=== PATIENT | female | born 1985 | race Caucasian/White ===

== ENCOUNTER 2020-09-11 20:55 | Inpatient (IN) | payer BC, SELFPAY ==
--- NOTE | 2020-09-11 21:29 | MHC.CARE ---
CARE team met with this patient at ED registration to facilitate transfer/admission to . Patient was presented with CV and is (politely) refusing. Is agreeable to admission but states she will not be able to stay for three days and only wants to get some rest and see a psychiatrist. Reports she successfully detoxed herself off of her meds using THC. Reports she has a plan and that this admission is part of it. Pleasant and cooperative. 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 CARE team facilitated section 12 for admission. Patient was brought to by EMS with CARE team. CARE team updated staff on patient's admission status.
[2020-09-11 22:28] VITALS: BMI 31.8
--- NOTE | 2020-09-11 22:49 | PC.NURSE ---
PT IS A 35 YEAR OLD FEMALE OF [place], 15 MINUTE SAFETY CHECKS, PSYCH GROUPS. PT WAS BROUGHT TO [facility] BY AMBULANCE AND TRANSFERED TO [facility] M5 UNIT FOR DEPRESSION. PT DETOXED HERSELF OFF HER MEDS USING THC GUMMIES BECAUSE SHE DOES NOT LIKE THE SIDE EFFECTS OF HER MEDICATIONS. PT DOES NOT HAVE A CURRENT THERAPIST AND WOULD LIKE A PSYCHIATRIST. PT REPORTS NO SI/HI. NO HALLUCINATIONS. SHE SAID SHE NEEDS TO RELAX, GET HER MEDS CORRECT, AND LEAVE SOON POSSIBLE. PT LIVES WITH HER SIGNIFICANT OTHER AND HIS 2 KIDS FOR THE PAST YEAR WHICH HAS BEEN A BIG CHANGE FOR HER. PT IS STRESSED BECAUSE SHE WANTS A BABY AND FEELS LIKE SHE IS RUNNING OUT OF TIME TO GET HER LIFE TOGETHER. PT WANTS A THC MEDICAL CARD DUE TO WORRY THAT SHE WILL LOSE HER EMPLOYMENT IF THEY RANDOMLY DRUG TEST HER. PT APPEARS DEPRESSED, CRYING WHILE TALKING ABOUT HER SITUATION. SHE IS COOPERATIVE AND APPROPRIATE. PT SAID SHE HAD A SPIRITUAL AWAKENING THAT HAS NEVER HAPPENED ON HER WAY FROM [facility] TO [facility] WITH THE EMT BECAUSE HER NAME WAS THE SAME HER BEST FRIENDS. PT FEELS IT IS HARD TO TALK TO ANYONE IN HER LIFE AND ONLY WANTS TO TALK TO INSULATION NOZZLEMAN BUT NEEDS TO BE SET UP WITH THE RESOURCES FOR WHEN SHE GETS OUT OF HERE.
[2020-09-12] MEDS: OLANZapine 5 MG TABLET PO ×2 (00:05→21:14)
[2020-09-12] MEDS: Acetaminophen 325 MG TABLET 650 MG PO ×2 (01:15→18:18)
[2020-09-12] MEDS: Omeprazole 20 MG CAPSULE.DR PO ×2 (05:36→16:57)
[2020-09-12 06:15] VITALS: BP 141/84; PULSE 87; RESP 18; TEMP 37; O2SAT 99
[2020-09-12 08:14] LABS: MANUAL DIFF FLAG NO
[2020-09-12 08:21] LABS: Basophils Percent Auto 0.3 % (0-2); Eosinophils Absolute Auto 0.2 X10*3/uL (0.0-0.4); Eosinophils Percent Auto 1.2 % (0-4); Hemoglobin 12.1 g/dl (12.0-16.0); Imm Gran Abs Auto 0.04 X10*3/uL (0.00-0.03); Imm Gran Pct Auto 0.3 % (0.0-0.4); Lymphocytes Absolute Auto 2.4 X10*3/uL (1.2-4.9); Lymphocytes Percent Auto 16.9 % (20-40); Mean Corpuscular HGB Conc 31.8 g/dl (31.0-35.0); Mean Corpuscular Hemoglobin 25.4 pg (27.0-33.0); Mean Corpuscular Volume 79.7 fL (80-98); Mean Platelet Volume 10.1 fL (9.4-12.3); Monocytes Absolute Auto 0.8 X10*3/uL (0.1-1.2); Monocytes Percent Auto 5.2 % (2-11); Neutrophils Percent Auto 76.1 % (45-73); Platelet Count 386 X10*3/uL (160-400); Red Blood Count 4.77 X10*6/uL (4.20-5.50); Red Cell Distribution Width 14.7 % (11.0-16.0); White Blood Count 14.4 X10*3/uL (4.8-10.8)
[2020-09-12 08:52] LABS: Glucose Fasting 106 mg/dL (60-99)
[2020-09-12 08:54] LABS: Cholesterol 177 mg/dL; HDL Cholesterol 57 mg/dL; LDL Cholesterol Calculated 99 mg/dl; Triglycerides 106 mg/dL
[2020-09-12 09:12] LABS: Thyroid Stimulating Hormone 1.76 uIU/mL (0.32-4.0)
--- NOTE | 2020-09-12 10:56 | HO.PSYADMNOT ---
HPI Chief Complaint: depression Sources of Information: patient interviewed, chart reviewed and crisis/core team assessment reviewed Additional Sources of Information: SUGAR REFINERY SUPERVISOR crises evaluation HPI Narrative: 35 SWF presents with paige. Was seen by SUGAR REFINERY SUPERVISOR at [facility] after her S.O became concerned re increasingly intrusive behaviors, disrupting daughters online class, sending odd communications to people at work prompting calls to her SO Kostas. Also noted poor sleep, rapid tangential speech. Very worried about pandemic affecting her family. Responding to IS when observed. Made suicidal statements (unspecified in report). Stressors: Covid/recent promotion at work to join [employer] at [employer]./stopped all meds bc wants to explore THC. Denies Hx of paige. On interview labile, spontaneously crying, rapid speech. Rambling about sharing garden seeds with another manic pt, talked about her passion in helping Vets Its my [employer] work . Mentioned X names from work as if TW would know the names (overfamiliar). Stated she has figured out her life in the past few days by reading the Bible ( never read before ). Is aware I might be bipolar . Racing thoughts experienced. Denies PI. Past Psychiatric History: No psych MD. Was on Zoloft/Wellbutrin. Stopped around . No past Hx of Mood stabilizers/FGAs/SGAs Medical Evaluation Reviewed: Hospitalist Teresaal Pending [facility], [facility]–1983 Narrative: Hx Lap Band Narrative: Hx lap band Family History: M: drug addiction, F : of ETOH. 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 Marriage deferred bc of COVID Substance History: THC+. I grow it its legal now Trauma History: Denies Diagnostics Vital Signs (24Hr): Vital Signs - 24 hr 09/12/20 06:15 Temperature 98.6 F Pulse Rate 87 Respiratory Rate 18 Blood Pressure 141/84 H Pulse Oximetry 99 Body Mass Index 31.8 Labs Results: 09/12/20 07:54 Labs: Laboratory Results - last 48 hr 09/12/20 09/12/20 09/12/20 07:54 07:54 07:55 WBC 14.4 H RBC 4.77 Hgb 12.1 Hct 38.0 MCV 79.7 L MCH 25.4 L MCHC 31.8 RDW 14.7 Plt Count 386 MPV 10.1 Immature Gran % (Auto) 0.3 Neut % (Auto) 76.1 H Lymph % (Auto) 16.9 L [place] % (Auto) 5.2 Eos % (Auto) 1.2 Baso % (Auto) 0.3 Lymph # (Auto) 2.4 [place] # (Auto) 0.8 Eos # (Auto) 0.2 Baso # (Auto) 0.0 Abs Immat Gran (auto) 0.04 H Absolute Neuts (auto) 11.0 H Absolute Nucleated RBC 0.000 Nucleated RBC % (auto) 0.0 Fasting Glucose 106 H Triglycerides Cholesterol LDL Cholesterol, Calc HDL Cholesterol TSH 1.76 09/12/20 07:55 WBC RBC Hgb Hct MCV MCH MCHC RDW Plt Count MPV Immature Gran % (Auto) Neut % (Auto) Lymph % (Auto) [place] % (Auto) Eos % (Auto) Baso % (Auto) Lymph # (Auto) [place] # (Auto) Eos # (Auto) Baso # (Auto) Abs Immat Gran (auto) Absolute Neuts (auto) Absolute Nucleated RBC Nucleated RBC % (auto) Fasting Glucose Triglycerides 106 Cholesterol 177 LDL Cholesterol, Calc 99 HDL Cholesterol 57 TSH Meds/Allergies Meds Home Medications Acetaminophen (Acetaminophen 325 Mg Tablet) 650 mg PO Q6H PRN PRN Reason: Headache Last Admin: 09/12/20 18:18 Dose: 650 mg Documented by: Al Hydroxide/Mg Hydroxide (Magnesium Hydrox/Alum Hydrox 30 Ml Oral.Susp) 30 ml PO Q6H PRN PRN Reason: Nausea Lorazepam (Lorazepam 1 Mg Tablet) 1 mg PO Q4H PRN PRN Reason: anxiety/restlessness Magnesium Hydroxide (Milk Of Magnesia 30 Ml Oral.Susp) 30 ml PO DAILY PRN PRN Reason: Constipation Olanzapine (Olanzapine 5 Mg Tablet) 5 mg PO Q4H PRN PRN Reason: Anxiety Last Admin: 09/12/20 00:05 Dose: 5 mg Documented by: Olanzapine (Olanzapine 5 Mg Tablet) 5 mg PO BID [facility] Omeprazole (Omeprazole 20 Mg Capsule.) 20 mg PO BID@0630,1630 [facility] Last Admin: 09/12/20 16:57 Dose: 20 mg Documented by: Valacyclovir HCl (Valacycyclovir Hcl 500 Mg Tablet) 500 mg PO DAILY [facility] Last Admin: 09/12/20 09:34 Dose: Not Given Documented by: Allergies Allergies Allergy/AdvReac Type Severity Reaction Status Date / Time No Known Allergies Allergy Verified 09/11/20 23:12 Mental Status Exam Mental Status Exam Patient Appearance: Disheveled Patient Orientation: Person, Place, Time and Situation Level of Consciousness: Awake Patient Behavior: Hyperactive and Restless Mood Description: Labile, Elated, Nervous and Expansive Affect Description: Labile, Sad and Nervous Ability to Follow Directions: Good Speech Pattern: Perseverating and Pressured Memory Description: Intact Hallucinations: None Delusions: Not Present Thought Content: positive for Loose Associations and positive for Suicidal Ideation (denies) Depressive Symptoms: Insomnia Abnormal Motor Activity Signs and Symptoms: Agitation and Hyperactivity Assessment & Plan Assessment & Plan (1) Bipolar I disorder with paige: Status: Acute Code(s): F31.10 - Bipolar disorder, current episode manic without psychotic features, unspecified (2) Cannabis abuse: Status: Acute Code(s): F12.10 - Cannabis abuse, uncomplicated Assessment and Plan: q15 checks cv OLZ 5 mg BID and Loraz PRN Collateral from [facility] Rx as appropriate Patient educated on: diagnosis Informed Consent: understands Reason for continued inpatient stay Substantial Risk for: harm to self, inability to function and rapid decompensation
[2020-09-12 17:02] VITALS: BP 134/76; PULSE 78; TEMP 36.3
[2020-09-13] MEDS: Acetaminophen 325 MG TABLET 650 MG PO ×2 (00:24→20:03)
[2020-09-13 07:00] VITALS: BMI 31.6
--- NOTE | 2020-09-13 07:41 | HO.PSYCHPN ---
Subjective Subjective Date of Service: 09/13/20 Reason For Visit: depression Subjective Notes: Conditional Voluntary Interim History: Remains hypiomanic. Some rambling. Arranging rearranging things. Shows self in good light. Negotiated to 7.5 mg OLZ. Does not want Kostas as next of kin contact but her M. 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 Compliance: Yes Side effects from medications: No Attending Groups: Yes Review of Systems Review of Systems Yes all other systems are reviewed and are negative Mental Status Exam Mental Status Exam Patient Appearance: Disheveled Patient Orientation: Person, Place, Time and Situation Level of Consciousness: Awake Patient Behavior: Hyperactive and Restless Mood Description: Elated, Nervous and Expansive Affect Description: Labile, Sad and Nervous Ability to Follow Directions: Good Speech Pattern: Perseverating and Pressured Memory Description: Intact Diagnostics Vital Signs (24Hr): Vital Signs - 24 hr 09/12/20 17:02 Temperature 97.3 F Pulse Rate 78 Blood Pressure 134/76 Body Mass Index 31.8 Labs Results: 09/12/20 07:54 Labs: Laboratory Results - last 48 hr 09/12/20 09/12/20 09/12/20 07:54 07:54 07:55 WBC 14.4 H RBC 4.77 Hgb 12.1 Hct 38.0 MCV 79.7 L MCH 25.4 L MCHC 31.8 RDW 14.7 Plt Count 386 MPV 10.1 Immature Gran % (Auto) 0.3 Neut % (Auto) 76.1 H Lymph % (Auto) 16.9 L [place] % (Auto) 5.2 Eos % (Auto) 1.2 Baso % (Auto) 0.3 Lymph # (Auto) 2.4 [place] # (Auto) 0.8 Eos # (Auto) 0.2 Baso # (Auto) 0.0 Abs Immat Gran (auto) 0.04 H Absolute Neuts (auto) 11.0 H Absolute Nucleated RBC 0.000 Nucleated RBC % (auto) 0.0 Fasting Glucose 106 H Triglycerides Cholesterol LDL Cholesterol, Calc HDL Cholesterol TSH 1.76 09/12/20 07:55 WBC RBC Hgb Hct MCV MCH MCHC RDW Plt Count MPV Immature Gran % (Auto) Neut % (Auto) Lymph % (Auto) [place] % (Auto) Eos % (Auto) Baso % (Auto) Lymph # (Auto) [place] # (Auto) Eos # (Auto) Baso # (Auto) Abs Immat Gran (auto) Absolute Neuts (auto) Absolute Nucleated RBC Nucleated RBC % (auto) Fasting Glucose Triglycerides 106 Cholesterol 177 LDL Cholesterol, Calc 99 HDL Cholesterol 57 TSH Medications Medications Current Medications Generic Name Dose Route Start Last Admin Trade Name Freq PRN Reason Stop Dose Admin Acetaminophen 650 mg 09/11/20 23:25 09/13/20 00:24 Acetaminophen 325 Mg Tablet PO 650 mg Q6H PRN Administration Headache Al Hydroxide/Mg Hydroxide 30 ml 09/11/20 23:27 Magnesium Hydrox/Alum Hydrox 30 Ml Oral.Susp PO Q6H PRN Nausea Lorazepam 1 mg 09/12/20 19:33 Lorazepam 1 Mg Tablet PO Q4H PRN anxiety/restlessness Magnesium Hydroxide 30 ml 09/11/20 23:29 Milk Of Magnesia 30 Ml Oral.Susp PO DAILY PRN Constipation Olanzapine 5 mg 09/11/20 23:23 09/12/20 00:05 Olanzapine 5 Mg Tablet PO 5 mg Q4H PRN Administration Anxiety Olanzapine 5 mg 09/12/20 21:00 09/12/20 21:14 Olanzapine 5 Mg Tablet PO 5 mg BID ALLEN Administration Omeprazole 20 mg 09/12/20 06:30 09/12/20 16:57 Omeprazole 20 Mg Capsule. PO 20 mg BID@8630,2630 ALLEN Administration Valacyclovir HCl 500 mg 09/12/20 09:00 09/12/20 09:34 Valacycyclovir Hcl 500 Mg Tablet PO Not Given DAILY ALLEN Allergies Allergies Allergy/AdvReac Type Severity Reaction Status Date / Time No Known Allergies Allergy Verified 09/11/20 23:12 Assessment & Plan Assessment & Plan (1) Bipolar I disorder with paige: Status: Acute Code(s): F31.10 - Bipolar disorder, current episode manic without psychotic features, unspecified (2) Cannabis abuse: Status: Acute Code(s): F12.10 - Cannabis abuse, uncomplicated Assessment and Plan: q15 checks cv OLZ 2.5 mg qam and 5 mgHS and Loraz PRN Collateral from [facility] Rx as appropriate Greater than 50% of the session was spent on counseling and/or coordination of care
[2020-09-13] MEDS: Omeprazole 20 MG CAPSULE.DR PO ×2 (08:45→16:20)
[2020-09-13 10:47] VITALS: BP 139/89; PULSE 121; RESP 16; TEMP 36.9; O2SAT 97
[2020-09-13] MEDS: OLANZapine 2.5 MG TABLET PO (12:29)
[2020-09-13 17:31] VITALS: BP 118/76; PULSE 100; TEMP 36.8
[2020-09-13 18:00] VITALS: BP 118/76; PULSE 3; TEMP 36.6
[2020-09-13] MEDS: OLANZapine 5 MG TABLET PO (21:00)
[2020-09-14 07:05] VITALS: BP 127/74; PULSE 88; RESP 16; TEMP 36.4; O2SAT 100
--- NOTE | 2020-09-14 07:45 | P.PNPSI_ITS ---
Subjective Subjective Date of Service: 09/14/20 Reason For Visit: depression Diagnostics Vital Signs (24Hr): Vital Signs - 24 hr 09/13/20 10:47 09/13/20 17:31 09/13/20 18:00 Temperature 98.5 F 98.3 F 98 F Pulse Rate 121 H 100 3 L Respiratory Rate 16 Blood Pressure 139/89 118/76 118/76 Pulse Oximetry 97 09/14/20 07:05 Temperature 97.6 F Pulse Rate 88 Respiratory Rate 16 Blood Pressure 127/74 Pulse Oximetry 100 Body Mass Index 31.6 Labs Results: 09/12/20 07:54 Labs: Laboratory Results - last 48 hr 09/12/20 09/12/20 09/12/20 07:54 07:54 07:55 WBC 14.4 H RBC 4.77 Hgb 12.1 Hct 38.0 MCV 79.7 L MCH 25.4 L MCHC 31.8 RDW 14.7 Plt Count 386 MPV 10.1 Immature Gran % (Auto) 0.3 Neut % (Auto) 76.1 H Lymph % (Auto) 16.9 L [place] % (Auto) 5.2 Eos % (Auto) 1.2 Baso % (Auto) 0.3 Lymph # (Auto) 2.4 [place] # (Auto) 0.8 Eos # (Auto) 0.2 Baso # (Auto) 0.0 Abs Immat Gran (auto) 0.04 H Absolute Neuts (auto) 11.0 H Absolute Nucleated RBC 0.000 Nucleated RBC % (auto) 0.0 Fasting Glucose 106 H Triglycerides Cholesterol LDL Cholesterol, Calc HDL Cholesterol TSH 1.76 09/12/20 07:55 WBC RBC Hgb Hct MCV MCH MCHC RDW Plt Count MPV Immature Gran % (Auto) Neut % (Auto) Lymph % (Auto) [place] % (Auto) Eos % (Auto) Baso % (Auto) Lymph # (Auto) [place] # (Auto) Eos # (Auto) Baso # (Auto) Abs Immat Gran (auto) Absolute Neuts (auto) Absolute Nucleated RBC Nucleated RBC % (auto) Fasting Glucose Triglycerides 106 Cholesterol 177 LDL Cholesterol, Calc 99 HDL Cholesterol 57 TSH Medications Medications Current Medications Generic Name Dose Route Start Last Admin Trade Name Freq PRN Reason Stop Dose Admin Acetaminophen 650 mg 09/11/20 23:25 09/13/20 20:03 Acetaminophen 325 Mg Tablet PO 650 mg Q6H PRN Administration Headache Al Hydroxide/Mg Hydroxide 30 ml 09/11/20 23:27 Magnesium Hydrox/Alum Hydrox 30 Ml Oral.Susp PO Q6H PRN Nausea Lorazepam 1 mg 09/12/20 19:33 Lorazepam 1 Mg Tablet PO Q4H PRN anxiety/restlessness Magnesium Hydroxide 30 ml 09/11/20 23:29 Milk Of Magnesia 30 Ml Oral.Susp PO DAILY PRN Constipation Olanzapine 5 mg 09/11/20 23:23 09/12/20 00:05 Olanzapine 5 Mg Tablet PO 5 mg Q4H PRN Administration Anxiety Olanzapine 5 mg 09/13/20 21:00 09/13/20 21:00 Olanzapine 5 Mg Tablet PO 5 mg BEDTIME ALLEN Administration Olanzapine 2.5 mg 09/13/20 11:05 09/13/20 12:29 Olanzapine 2.5 Mg Tablet PO 2.5 mg DAILY ALLEN Administration Omeprazole 20 mg 09/12/20 06:30 09/13/20 16:20 Omeprazole 20 Mg Capsule. PO 20 mg BID@4515,6535 ALLEN Administration Valacyclovir HCl 500 mg 09/12/20 09:00 09/13/20 08:47 Valacycyclovir Hcl 500 Mg Tablet PO Not Given DAILY ALLEN Allergies Allergies Allergy/AdvReac Type Severity Reaction Status Date / Time No Known Allergies Allergy Verified 09/11/20 23:12 Assessment & Plan Greater than 50% of the session was spent on counseling and/or coordination of care
[2020-09-14] MEDS: Omeprazole 20 MG CAPSULE.DR PO (08:23)
--- NOTE | 2020-09-14 12:16 | PM.IMCN ---
History of Present Illness Data of Consult Service Date: 09/14/20 Requesting physician: Donovan Vargas Primary Care Provider: Nieves Duval NP HPI Reason for consult: routine medical This is a 35-year-old female admitted 5 for management paige. She has been stabilized and is ready for discharge today. The hospitalists were asked to see her in consultation for routine medical evaluation. She has no specific medical complaints at this time. Lab Work revealed leukocytosis on 09/12 however patient no evidence of infection. She denies cough, fever, chills, shortness breath chest pain. She does report some acid reflux for which medication has been helping as well as some chronic right shoulder pain. Review of Systems Review of Systems: Yes all other systems are reviewed and are negative Constitutional: Constitutional: Denies chills and Denies fever(s) Cardiovascular: Cardiovascular: Denies chest pain Respiratory: Respiratory: Denies cough Gastrointestinal: Gastrointestinal: Denies abdominal pain [facility] Medical History (Updated 09/14/20 @ 12:22 by RAMIREZ Sawant) Bipolar I disorder with paige Functional capacity: independent ambulation Family History (Updated 09/14/20 @ 12:20 by RAMIREZ Sawant) Father Alcoholism Pertinent family history: Multiple family members with diabetes and substance abuse Surgical History (Updated 09/14/20 @ 12:20 by RAMIREZ Sawant) Hx of laparoscopic gastric banding Social History (Updated 09/14/20 @ 12:21 by RAMIREZ Sawant) Household Members: Significant Other and Children Household Members Other:: 2 step children Housing: House Do you presently have visiting nurse or other home services: No Alcohol intake: current Alcohol type: beer Smoking Status: Never smoker Second Hand Smoke Exposure: No Substance Use Type: Marijuana Substance Use Frequency: Daily Last Used Substance: Just Prior to Admission Currently Displaying Signs/Symptoms of Drug Intoxication Withdrawal: No Any prior treatment program specific to substance use: No Have you been hit, kicked, punched, or otherwise hurt by someone within the past year? If so, by whom?: No Do you feel safe in your current relationship?: Yes Is there a partner from a previous relationship who is making you feel unsafe now?: No Are you made to feel afraid or neglected: No Advance Directives: No Advance Directives Information Provided: Yes Do you have thoughts of harming others: None Do you have a plan to hurt others: No Plan Recently lost weight without trying: No service: No Sexual orientation: Straight/Heterosexual Meds Allergies Allergy/AdvReac Type Severity Reaction Status Date / Time No Known Allergies Allergy Verified 09/11/20 23:12 Physical Exam Vital Signs and Narrative: Vital Signs: Last Vital Signs Temp 97.6 F 09/14/20 07:05 Pulse 88 09/14/20 07:05 Resp 16 09/14/20 07:05 BP 127/74 09/14/20 07:05 Pulse Ox 100 09/14/20 07:05 Body Mass Index 31.6 Const: Nutritional Appearance: well nourished Orientation/consciousness: patient oriented x3 HENMT: Head: Yes normocephalic and Yes atraumatic Eyes: Sclerae: sclerae normal Chest: Chest palpation & inspection: normal inspection of the chest Resp: Effort & Inspection: normal respiratory effort and no respiratory distress Auscultation: clear to auscultation bilaterally Cardio: Rate: regular rate Rhythm: regular rhythm GI: Palpation (GI): Soft to palpation and nontender Skin: General skin exam: no rashes or lesions noted Neuro: General: patient oriented x3 Cranial nerves: Yes CN's II-XII intact bilaterally and Yes Bilaterally intact EOM present Extrem: General: Yes normal to inspection Results Labs CBC and Chem 7: 09/12/20 07:54 Assessment and Plan (1) Routine medical exam: Start date: 09/14/20 Status: Acute This is a 35-year-old female with a history of bipolar disorder admitted for management of paige There are no active medical conditions at this time. Although patient has leukocytosis she is afebrile and has no symptoms suggestive of infection. Would recommend outpatient follow-up with PCP. Thank you for allowing us to participate in the care of this patient. This case was discussed with Dr. Noonan
--- NOTE | 2020-09-14 12:20 | PM.PSYDC ---
DS: Providers Provider Date of admission: 09/11/20 20:55 Primary care physician: Nieves Duval NP Consults: 09/12/20 07:00 Consult to Hospitalist Routine Consulting Provider: Hospitalist Reason for consultation: Hospital Transfer DS: Diagnosis Discharge Diagnosis (1) Bipolar I disorder with paige: Status: Inactive (2) Cannabis abuse: Status: Acute Discharge Plan Discharge Patient Disposition: Home, Self-Care Referrals: Yuridia Kahn, therapist [Other] (Left voicemail, asked her to reach out to patient to schedule at [phone]) Donovan Vargas [Physician] - 10/29/20 2:00 pm Nieves Duval NP [Primary Care Provider] - 09/25/20 3:40 pm (IN OFFICE) Discharge Medications: New valacyclovir 500 mg Tablet 500 mg PO DAILY 30 Days Qty: 30 RF: 0 olanzapine 2.5 mg Tablet 2.5 mg PO BID PRN (Reason: anxiety) 30 Days Qty: 60 RF: 0 olanzapine 5 mg Tablet 5 mg PO BEDTIME 30 Days Qty: 30 RF: 0 omeprazole 20 mg Capsule,Delayed Release(Dr/Ec) 20 mg PO BID@0630,1630 30 Days Qty: 60 RF: 0 Discharge Orders: Discharge Order (Routine); Ordered 09/14/20 Ordered By: Donovan Vargas Diet: regular diet Activity on Discharge: As tolerated Stand Alone Forms: Community Support Discharge Date/Time: 09/14/20 14:25 Visit Report Forms: Patient Portal Discharge page Care Plan Goals: stabilize mood abstain from cannabis Health Concerns: mood swings cannabis use Plan of Treatment: ct meds Data Data Completed and Pending Completed studies during hospitalization [Text1]: 09/12/20 09/12/20 09/12/20 07:54 07:54 07:55 WBC 14.4 H RBC 4.77 Hgb 12.1 Hct 38.0 MCV 79.7 L MCH 25.4 L MCHC 31.8 RDW 14.7 Plt Count 386 MPV 10.1 Immature Gran % (Auto) 0.3 Neut % (Auto) 76.1 H Lymph % (Auto) 16.9 L [place] % (Auto) 5.2 Eos % (Auto) 1.2 Baso % (Auto) 0.3 Lymph # (Auto) 2.4 [place] # (Auto) 0.8 Eos # (Auto) 0.2 Baso # (Auto) 0.0 Abs Immat Gran (auto) 0.04 H Absolute Neuts (auto) 11.0 H Absolute Nucleated RBC 0.000 Nucleated RBC % (auto) 0.0 Fasting Glucose 106 H Triglycerides Cholesterol LDL Cholesterol, Calc HDL Cholesterol TSH 1.76 09/12/20 07:55 WBC RBC Hgb Hct MCV MCH MCHC RDW Plt Count MPV Immature Gran % (Auto) Neut % (Auto) Lymph % (Auto) [place] % (Auto) Eos % (Auto) Baso % (Auto) Lymph # (Auto) [place] # (Auto) Eos # (Auto) Baso # (Auto) Abs Immat Gran (auto) Absolute Neuts (auto) Absolute Nucleated RBC Nucleated RBC % (auto) Fasting Glucose Triglycerides 106 Cholesterol 177 LDL Cholesterol, Calc 99 HDL Cholesterol 57 TSH DS: Summary Hospital Course Hospital Course: 35 SWValentino presents with paige. Was seen by MECHANICAL TEST TECHNICIAN at [facility] after her S.O became concerned re increasingly intrusive behaviors, disrupting daughters online class, sending odd communications to people at work prompting calls to her SO Kostas. Also noted poor sleep, rapid tangential speech. Very worried about pandemic affecting her family. Responding to IS when observed. Made suicidal statements (unspecified in report). Stressors: Covid/recent promotion at work to join [employer] at [employer]./stopped all meds bc wants to explore THC. Denies Hx of paige. On interview labile, spontaneously crying, rapid speech. Rambling about sharing garden seeds with another manic pt, talked about her passion in helping Vets Its my [employer] work . Mentioned X names from work as if TW would know the names (overfamiliar). Stated she has figured out her life in the past few days by reading the Bible ( never read before ). Is aware I might be bipolar . Racing thoughts experienced. Denies PI. Past Psychiatric History: No psych MD. Was on Zoloft/Wellbutrin. Stopped around . No past Hx of Mood stabilizers/FGAs/SGAs Pt was manic on admission: labile, disorganized but responded well to a few doses of Olanzapine. She agreed to work with outpt providers and was keen for a brief admission. Treatment team was not in favor of this but pt was not commitable. She decided to stay with her mother, not return to her BF Kostas who accepted her request. She extolled the benefits of THC and remained hypomanic but not dangerous to self /others. Self care was adequate. [place] paperwork was done. It is hoped pt will comply with meds. Time spent discussing smoking cessation with patient: more than 10 minutes Status at Discharge Functional status at discharge: independent ambulation Overall status at discharge: patient is not back to baseline Time Spent with Patient Time attestation: Total time spent providing and/or coordinating discharge services: Time spent: Greater than 30 minutes
== END 2020-09-14 14:25 | disposition home or self-care (01) | DRG 753 ==
PROVIDERS: Admitting Provider Psychiatry & Neurology Psychiatry; PCP Nurse Practitioner Adult Health; Visit Provider Psychiatry & Neurology Psychiatry
DX: F31.10 Bipolar disorder, current episode manic without psychotic features, unspecified (principal); F12.10 Cannabis abuse, uncomplicated; Z98.84 Bariatric surgery status; Z79.899 Other long term (current) drug therapy
CPT/HCPCS: 36415; 80061; 82947; 84443; 85025; 99223; 99232; 99239